=== PATIENT | female | born 1960 | race Caucasian/White ===

== ENCOUNTER 2018-01-29 07:02 | Emergency (ER) | payer MEDICARE, MEDICAID, SELFPAY ==
[2018-01-29 07:00] VITALS: BP 117/69; PULSE 65; RESP 30; TEMP 36.5; O2SAT 100
--- NOTE | 2018-01-29 08:18 | ED.OVERDOSE ---
HPI - Overdose General Chief Complaint: Toxicology Problem Stated Complaint: Anxious, chest pain Time Seen by Provider: 01/29/18 07:05 Source: patient Mode of arrival: ambulatory Limitations: no limitations History of Present Illness HPI Narrative: Patient to the ED with withdrawal symptoms including agitation, all over body pain, tremors, and nausea. She has chronic pain and had been under pain contract at a local methadone clinic until 2 days ago when they noted that she'd been using heroin. All of her medications were canceled including opiates, benzos, antidepressants and others. The patient is unsure of the specific list but we are working on getting that. She has been using heroin intravenously for about the past year. Her chronic pain is due to spinal stenosis. [place]CP in [place] complaint: other Onset (ago): hour(s) Related Data Previous Rx's Medication Instructions Recorded buspirone 15 mg PO TID 14 Days #42 tab 01/29/18 diazepam [Valium] See Label Instructions .ROUTE 01/29/18 .COMPLEX #21 tab escitalopram oxalate 10 mg PO DAILY #14 tab 01/29/18 levothyroxine 75 mcg PO DAILY #14 cap 01/29/18 quetiapine 200 mg PO BEDTIME #14 tab 01/29/18 Allergies Allergy/AdvReac Type Severity Reaction Status Date / Time ciprofloxacin [From Cipro] Allergy Verified 01/29/18 07:04 Sulfa (Sulfonamide Allergy Verified 01/29/18 07:04 Antibiotics) Review of Systems Review of Systems All systems reviewed & are unremarkable except as noted in HPI and below Constitutional Reports body ache(s), Reports chills, Reports excessive sweating, Reports fatigue, Denies fever(s), Reports headache(s), Denies lethargy and Reports weakness Eyes Denies change in vision, Denies eye discharge, Denies irritation and Denies loss of vision ENT Ears, Nose, Mouth, and Throat: Denies change in voice, Reports headache(s), Denies neck pain and Denies sore throat Cardiovascular Denies chest pain, Denies irregular heart rhythm, Reports lightheadedness, Denies palpitations, Denies dyspnea, Denies dyspnea on exertion and Denies orthopnea Respiratory Denies cough, Denies dyspnea, Denies dyspnea on exertion and Denies wheezing Gastrointestinal Gastrointestinal: Denies abdominal pain, Denies change in bowel habits, Denies diarrhea, Reports nausea and Denies vomiting Genitourinary Denies hematuria, Denies flank pain, Denies urinary incontinence and Denies urinary urgency Musculoskeletal Reports muscle cramps and Denies neck pain Integumentary/Breasts Denies pruritus, Denies erythema, Denies rash and Denies wounds Neurologic Denies confusion, Reports headache(s), Denies loss of vision, Reports paresthesias and Reports weakness Psychiatric Reports anxiety, Denies confusion, Denies depression, Denies homicidal ideation and Denies suicidal ideation Endocrine Reports excessive sweating, Reports fatigue and Denies palpitations Hematologic/Lymphatic Denies easy bruising Allergic/Immunologic Denies wheezing PFSH Medical History Chronic pain (Acute) Depression (Acute) Spinal stenosis (Acute) Social History Smoking Status: Current every day smoker Exam Narrative Exam Narrative: 49-year-old female in moderate distress. Clearly very uncomfortable, lying on her side in the cart crying Initial Vital Signs Initial Vital Signs: Vital Signs Temperature 97.7 F 01/29/18 07:00 Pulse Rate 65 01/29/18 07:00 Respiratory Rate 30 H 01/29/18 07:00 Blood Pressure 117/69 01/29/18 07:00 Pulse Oximetry 100 01/29/18 07:00 Const General: in distress, anxious, diaphoretic and disheveled HENMT Head: normal to inspection and normocephalic Ears: hearing grossly normal bilaterally Nose: external nose normal Face and sinus: normal facial exam Mouth: moist mucous membranes Throat: posterior oropharynx normal Eyes General: appearance normal, both eyes and all related structures Pupils: PERRL EOM: EOM intact bilaterally Resp Effort & Inspection: normal respiratory effort, able to speak in complete sentences, no respiratory distress and no use of accessory muscles Auscultation: clear to auscultation bilaterally, no rales, no rhonchi and no wheezes Cardio Rate: regular rate Rhythm: regular rhythm Heart Sounds: no click, no gallops, no murmurs and no rubs Pulses: normal peripheral pulses GI Inspection: non-distended Palpation: soft, no hepatosplenomegaly, No guarding, No pulsatile mass and No tender Auscultation: normal bowel sounds Back/Spine/Pelvis Thoracic/Lumbar Spine: thoracic and lumbar spine normal to inspection Neuro General: alert, awake, gait normal and normal light touch, pain and propioception Cranial Nerves: PERRL and EOM intact bilaterally Cognition: normal cognition Gait: normal gait Motor: muscle tone normal throughout and strength 5/5 throughout Psych Appearance: disheveled Mental Status: mental status grossly normal Speech and Movement: agitated Affect: anxious affect Attitude: cooperative Thought Process: normal Thought Content: normal Course Orders Ordered: ED Orders 01/29/18 07:13 EKG-12 Lead Stat 01/29/18 08:08 Rapid Drug Screen, Urine Stat 01/29/18 08:15 Acetaminophen Stat Complete Blood Count AUTO DIFF Stat Comprehensive Metabolic Panel Stat Ethanol (ETOH) Stat Free T4 Free Thyroxine Stat Hepatic (Liver) Panel Stat Salicylate Stat Thyroid Stimulating Hormone Stat 01/29/18 08:43 Lactate (Lactic Acid) Stat Sodium Chloride (Normal Saline 0.9%) 1,000 mls @ 150 mls/hr IV CONT CHATA Last Admin: 01/29/18 08:35 Dose: 150 mls/hr Discontinued Medications Buspirone HCl (Buspar) 15 mg PO NOW ONE Stop: 01/29/18 09:55 Last Admin: 01/29/18 10:42 Dose: 15 mg Clonidine HCl (Catapres-Tts) 0.1 mg TOP NOW ONE Stop: 01/29/18 08:10 Last Admin: 01/29/18 08:37 Dose: Clonidine HCl (Catapres-Tts 1) 0.1 mg TOP NOW ONE Stop: 01/29/18 08:31 Last Admin: 01/29/18 08:36 Dose: 0.1 mg Diazepam (Valium) 5 mg PO NOW ONE Stop: 01/29/18 09:55 Last Admin: 01/29/18 10:21 Dose: 5 mg Escitalopram Oxalate (Lexapro) 10 mg PO NOW ONE Stop: 01/29/18 09:55 Last Admin: 01/29/18 10:42 Dose: 10 mg Lorazepam (Ativan) 1 mg IV NOW ONE Stop: 01/29/18 08:10 Last Admin: 01/29/18 08:34 Dose: 1 mg Reevaluation(s) Reevaluation #1: Patient feeling some improvement after administration of Ativan with a Catapres patch. Awaiting medication list from pharmacy to more accurately address further withdrawal syndrome Time: 09:13 Vital Signs - 8 hr 01/29/18 07:00 01/29/18 08:41 Temperature 97.7 F Pulse Rate 65 60 Respiratory Rate 30 H 20 Blood Pressure 117/69 Blood Pressure [Left Arm] 124/64 H Pulse Oximetry 100 98 MDM - Overdose Lab Data Result diagrams: 01/29/18 08:15 01/29/18 08:15 Lab Results 01/29/18 01/29/18 01/29/18 Range/Units 08:15 08:15 08:15 WBC 9.1 (4.5-11.0) X10^3/uL RBC 5.08 (4.0-5.2) X10^6/uL Hgb 15.2 (12.0-16.0) g/dL Hct 43.8 (36-46) % MCV 86.3 (80-100) fL MCH 29.9 (26-34) PG MCHC 34.7 (30-36) % RDW 14.6 (11.6-14.8) % Plt Count 233 (150-400) X10^3/uL Neut % (Auto) 81.0 H (50-75) % Lymph % (Auto) 13.3 L (25-40) % [place] % (Auto) 5.3 (3-14) % Eos % (Auto) 0.1 L (2-4) % Baso % (Auto) 0.3 (0-2) % Neut # (Auto) 7400 H (5372-7839) /uL Sodium 141 (137-145) mmol/L Potassium 4.2 (3.4-5.1) mmol/L Chloride 107 (98-107) mmol/L Carbon Dioxide 20 L (22-32) mmol/L BUN 9 (7-17) mg/dL Creatinine 0.50 L (0.52-1.04) mg/dL Estimated GFR > 60.0 (>60) mL/min BUN/Creatinine Ratio 18.0 (6-22) Glucose 125 H (70-100) mg/dL Lactate (0.7-2.1) mmol/L Calcium 9.6 (8.4-10.2) mg/dL Total Bilirubin 1.5 H (0.2-1.3) mg/dL Conjugated Bilirubin 0.0 (0.0-0.3) md/dL Unconjugated Bilirubin 0.9 (0.0-1.1) mg/dL AST 79 H (14-36) IU/L ALT 73 H (9-52) IU/L Alkaline Phosphatase 139 H (38-126) U/L Total Protein 8.9 H (6.3-8.2) g/dL Albumin 4.3 (3.5-5.0) g/dL Globulin 4.6 H (1.7-4.1) g/dL Albumin/Globulin Ratio 0.9 L (1.0-2.8) TSH 0.04 L (0.47-4.68) uIU/mL Free T4 1.59 (0.78-2.19) ng/dL Salicylates 1.8 (<20) mg/dL Acetaminophen < 10 L (10-30) ug/dL Ethyl Alcohol < 10 mg/dL 01/29/18 Range/Units 08:43 WBC (4.5-11.0) X10^3/uL RBC (4.0-5.2) X10^6/uL Hgb (12.0-16.0) g/dL Hct (36-46) % MCV (80-100) fL MCH (26-34) PG MCHC (30-36) % RDW (11.6-14.8) % Plt Count (150-400) X10^3/uL Neut % (Auto) (50-75) % Lymph % (Auto) (25-40) % [place] % (Auto) (3-14) % Eos % (Auto) (2-4) % Baso % (Auto) (0-2) % Neut # (Auto) (8828-1134) /uL Sodium (137-145) mmol/L Potassium (3.4-5.1) mmol/L Chloride (98-107) mmol/L Carbon Dioxide (22-32) mmol/L BUN (7-17) mg/dL Creatinine (0.52-1.04) mg/dL Estimated GFR (>60) mL/min BUN/Creatinine Ratio (6-22) Glucose (70-100) mg/dL Lactate 1.1 (0.7-2.1) mmol/L Calcium (8.4-10.2) mg/dL Total Bilirubin (0.2-1.3) mg/dL Conjugated Bilirubin (0.0-0.3) md/dL Unconjugated Bilirubin (0.0-1.1) mg/dL AST (14-36) IU/L ALT (9-52) IU/L Alkaline Phosphatase (38-126) U/L Total Protein (6.3-8.2) g/dL Albumin (3.5-5.0) g/dL Globulin (1.7-4.1) g/dL Albumin/Globulin Ratio (1.0-2.8) TSH (0.47-4.68) uIU/mL Free T4 (0.78-2.19) ng/dL Salicylates (<20) mg/dL Acetaminophen (10-30) ug/dL Ethyl Alcohol mg/dL Discharge Plan Departure Patient Disposition: Home, Self-Care Clinical Impression: Opioid dependence with withdrawal Instructions: DI for Drug or Alcohol Withdrawal Prescriptions: New quetiapine 200 mg tablet 200 mg PO BEDTIME Qty: 14 RF: 0 buspirone 15 mg tablet 15 mg PO TID 14 Days Qty: 42 RF: 0 escitalopram oxalate 10 mg tablet 10 mg PO DAILY Qty: 14 RF: 0 levothyroxine 75 mcg capsule 75 mcg PO DAILY Qty: 14 RF: 0 diazepam [Valium] 2 mg tablet See Label Instructions .ROUTE .COMPLEX Qty: 21 RF: 0
[2018-01-29 08:30] LABS: Add Manual Diff / Slide Review NO; Basophils Percent Auto 0.3 % (0-2); Eosinophils Percent Auto 0.1 % (2-4); Hematocrit 43.8 % (36-46); Hemoglobin 15.2 g/dL (12.0-16.0); Lymphocytes Percent Auto 13.3 % (25-40); Mean Corpuscular HGB Conc 34.7 % (30-36); Mean Corpuscular Hemoglobin 29.9 PG (26-34); Mean Corpuscular Volume 86.3 fL (80-100); Monocytes Percent Auto 5.3 % (3-14); Neutrophils Absolute Auto 7400 /uL (3000-5900); Platelet Count 233 X10^3/uL (150-400); Red Blood Cell Count 5.08 X10^6/uL (4.0-5.2); Red Cell Distribution Width 14.6 % (11.6-14.8); White Blood Cell Count 9.1 X10^3/uL (4.5-11.0)
[2018-01-29] MEDS: LORazepam 2 MG/ML SYRINGE 1 MG IV (08:34)
[2018-01-29] MEDS: SODIUM CHLORIDE 0.9% 1,000 ML 150 ML IV (08:35)
[2018-01-29] MEDS: cloNIDine TTS 0.1 MG PATCH TOP (08:36)
[2018-01-29 08:40] LABS: Acetaminophen < 10 ug/dL (10-30); Alanine Aminotransferase 73 IU/L (9-52); Albumin 4.3 g/dL (3.5-5.0); Albumin Globulin Ratio 0.9 (1.0-2.8); Alkaline Phosphatase 139 U/L (38-126); Aspartate Aminotransferase 79 IU/L (14-36); Bilirubin Total 1.5 mg/dL (0.2-1.3); Bilirubin Unconjugated 0.9 mg/dL (0.0-1.1); Blood Urea Nitrogen 9 mg/dL (7-17); Calcium 9.6 mg/dL (8.4-10.2); Carbon Dioxide 20 mmol/L (22-32); Chloride 107 mmol/L (98-107); Estimated Glomerular Filt Rate > 60.0 mL/min (>60); Ethanol (ETOH) < 10 mg/dL; Globulin 4.6 g/dL (1.7-4.1); Glucose 125 mg/dL (70-100); Potassium 4.2 mmol/L (3.4-5.1); Salicylate 1.8 mg/dL (<20); Sodium 141 mmol/L (137-145); Total Protein 8.9 g/dL (6.3-8.2)
[2018-01-29 08:41] VITALS: BP 124/64; PULSE 60; RESP 20; O2SAT 98
[2018-01-29 08:45] LABS: HEMOLYSIS 93 (0-50)
[2018-01-29 09:03] LABS: Lactate (Lactic Acid) 1.1 mmol/L (0.7-2.1)
[2018-01-29] MEDS: diazePAM 5 MG TABLET PO (10:21)
[2018-01-29 10:30] VITALS: BP 109/55; PULSE 72; RESP 13; O2SAT 98
[2018-01-29 10:31] LABS: Free T4, Direct Thyroxine 1.59 ng/dL (0.78-2.19)
--- NOTE | 2018-01-29 10:32 | PC.NURSE ---
PT requests sleeping pill. It is explained that in order to be able to get pt to methadone clinic that she will need to be functional. 5mg valium given and pt states thats not enough. Explained trying to stave off withdrawl symptoms, not knock her out. Explained still needs to get her vehicle and get to methadone clinic
[2018-01-29] MEDS: ESCITALOPRAM 10 MG TABLET PO (10:42)
[2018-01-29] MEDS: BUSPIRONE 15 MG TABLET PO (10:42)
[2018-01-29 10:45] LABS: Thyroid Stimulating Hormone 0.04 uIU/mL (0.47-4.68)
[2018-01-29 10:50] VITALS: BP 109/55; PULSE 72; RESP 16; O2SAT 99
[2018-01-29 11:51] VITALS: BP 109/55; PULSE 67; RESP 14; O2SAT 98
== END 2018-01-29 11:30 | disposition home or self-care (01) ==
LOC: ED 10:23
PROVIDERS: Emergency Provider Emergency Medicine
DX: F11.23 Opioid dependence with withdrawal (principal); R42 Dizziness and giddiness; R53.1 Weakness
CPT/HCPCS: 36591; 80053; 80076; 80320; 80329; 83605; 84439; 84443; 85025; 93005; 96361; 96374; 99284; G0480; J2060